=== PATIENT | male | born 1960 | race Caucasian/White ===

== ENCOUNTER 2021-07-14 17:57 | Emergency (ER) | payer OTHER, MEDICARE, SELFPAY ==
--- NOTE | ~2021-07-14 | US_ITS ---
EXAMINATION: US ABDOMEN COMPLETE CLINICAL INFORMATION: Elevated LFTs.. COMPARISON: None TECHNIQUE: Real-time imaging of the abdominal viscera. FINDINGS: PANCREAS: The pancreatic body is unremarkable. The pancreatic head and tail are obscured by gas. ABDOMINAL AORTA: The proximal, mid, and distal segments are normal in caliber. INFERIOR VENA CAVA: Visualized portions are normal. LIVER: The liver is normal in size. The liver contour is normal. There is diffuse increased liver parenchymal echogenicity, consistent with hepatic steatosis. No focal hepatic lesion. There is no intrahepatic biliary duct dilatation seen. GALLBLADDER: Normal. The gallbladder is physiologically distended without evidence of stones, sludge, polyps, wall thickening or pericholecystic fluid. COMMON BILE DUCT: Normal in caliber measuring 0.4 cm in diameter. RIGHT KIDNEY: Normal. No hydronephrosis. No renal calculi or focal parenchymal lesions. The kidney measures 8.4 cm in maximum dimension. LEFT KIDNEY: Normal. No hydronephrosis. No renal calculi or focal parenchymal lesions. The kidney measures 9.5 cm in maximum dimension. SPLEEN: Normal. The spleen measures 9.6 cm in maximum dimension. FREE FLUID: None. US/US abdomen complete IMPRESSION: Hepatic steatosis. Otherwise unremarkable abdominal ultrasound.
--- NOTE | ~2021-07-14 | CT_ITS ---
EXAMINATION: CT CERVICAL SPINE WITHOUT CONTRAST CLINICAL INFORMATION: Head trauma loss of consciousness COMPARISON: None TECHNIQUE: CT scan cervical spine without contrast department standard protocol. This CT examination was performed using dose optimization techniques as appropriate, variously including the following: *Automated exposure control *Adjustment of mA and/or kV according to patient size (this includes techniques or standardized protocols for targeted exams where dose is matched to indication/reason for exam; i.e. extremities or head) *Use of iterative reconstruction technique DLP: 329 mGy-cm FINDINGS: 7 cervical vertebrae identified maintaining proper height. There is mild grade 1 anterior spondylolisthesis of C4 on C5. There is loss of normal cervical lordosis probably spasm or positional. There is narrowing of disc spaces and developed small osteophyte from the edges of endplates at almost all level suggests underlying degenerative disc disease. Spinal levels: C2-C3: No fracture. No central or foraminal stenosis. C3-C4: No fracture. No central or foraminal stenosis. C4-C5: No fracture. There is facet joints arthropathy on the left. C5-C6: No fracture. No significant central or foraminal stenosis. C6-C7: No fracture. No significant central or foraminal stenosis. C7-T1: No fracture. No significant stenosis. CT/CT cervical spine wo con IMPRESSION: *No CT evidence of cervical fractures. *Degenerative disc disease and facet joints arthropathy at almost all levels. *Loss of normal cervical lordosis likely spasm or positional. *Mild grade 1 anterior spondylolisthesis of C4 on C5. Fleischner guidelines were followed.
--- NOTE | ~2021-07-14 | XR_ITS ---
EXAMINATION: XR CHEST CLINICAL INFORMATION: Fall. COMPARISON: None. TECHNIQUE: AP view of the chest was obtained. FINDINGS: Mildly prominent cardiomediastinal silhouette is likely related with supine technique. No focal airspace opacities, pleural effusions or pneumothorax. No acute osseous abnormalities. Moderate degenerative osteoarthritis in the shoulders. XR/XR chest 1V IMPRESSION: No acute cardiopulmonary findings. No acutely displaced rib fractures.
--- NOTE | ~2021-07-14 | XR_ITS ---
EXAMINATION: X-RAY LEFT FOREARM X-RAY LEFT WRIST CLINICAL INFORMATION: Fall, pain. COMPARISON: None. TECHNIQUE: 1 view of the left forearm. 3 views of the left wrist. FINDINGS: Left forearm: No acute fractures or malalignment. Although, evaluation is limited in the absence of additional views. Diffuse soft tissue swelling. Vascular calcifications. Left wrist: No acute fractures or malalignment. Carpal rows are maintained. Moderate degenerative osteoarthritis at the first CMC joint and triscaphe space. Soft tissue swelling. Vascular calcifications. XR/XR wrist LT 2V IMPRESSION: Left forearm: No acute fractures or malalignment. However, examination is somewhat limited in the absence of lateral views. Left wrist: No acute fractures or malalignment. Moderate degenerative osteoarthritic of the first CMC joint and triscaphe space.
--- NOTE | ~2021-07-14 | XR_ITS ---
EXAMINATION: XR ANKLE, LEFT CLINICAL INFORMATION: Fall, bruising, pain. COMPARISON: None. TECHNIQUE: AP, lateral, and mortise views of the left ankle. FINDINGS: Severe multifocal osteoarthritis with near ankylosis of multiple joints, subchondral cysts, bony productive changes and deformities. For instance, the talus seems to be medially subluxated with respect to the tibia. There is circumferential swelling around the ankle. There are extensive vascular calcifications and decreased bony mineralization. XR/XR ankle LT min 3V IMPRESSION: Background of significant osteoarthritis limiting evaluation of superimposed acute injuries. Correlation with an MR of the left ankle could be obtained if indicated.
--- NOTE | ~2021-07-14 | MR_ITS ---
EXAMINATION: MR BRAIN WITHOUT CONTRAST CLINICAL INFORMATION: Lacunar infarct. Recent fall. COMPARISON: Head CT from 07/14/2021. TECHNIQUE: Multiplanar, multisequence imaging of the brain was performed without contrast. Limited study with motion artifacts. FINDINGS: There is extensive encephalomalacia from a presumed chronic infarct in the right MCA vascular territory involving the dorsal right insular cortex and right parietal lobe with chronic gyral hemosiderin staining and regional volume loss resulting in mild ex vacuo dilatation of the posterior body of the right lateral ventricle. No diffusion abnormalities are identified to suggest an acute infarct. There is no hydrocephalus. Generalized parenchymal volume loss noted. No mass effect or midline shift is seen. Moderate chronic white matter microangiopathy evident. There is Wallerian degeneration visible in the posterior limb of the right internal capsule extending into the brainstem. Moderate small vessel ischemic changes also noted in the jennifer. No extra-axial fluid collections are seen. There are scattered small chronic lacunar infarcts in the cerebellum and in the dorsal right thalamus. The craniovertebral junction, marrow signal, and midline structures are normal. The major intracranial flow voids at the level of the [place] are preserved. The dural venous sinus flow voids are maintained. The mastoid air cells are well aerated. There is near complete mucosal opacification of the left ostiomeatal complex affecting the left frontal sinus cavity, left anterior ethmoid air cells, and left maxillary antrum with intermediate signal secretions on the T2-weighted acquisition. Secretions demonstrating restricted diffusion as well. The remaining paranasal sinuses are aerated. MR/MR head/brain wo con IMPRESSION: Limited study with motion artifacts. No acute intracranial process. Extensive encephalomalacia from a chronic infarct in the right MCA vascular territory with primarily affecting the right parietal lobe Wallerian degeneration. Moderate chronic white matter microangiopathy. Small chronic lacunar infarcts in the cerebellum and right thalamus. Severe left-sided ostiomeatal complex pattern of sinus disease with restricted diffusion. Imaging findings may be due to chronic inspissated proteinaceous secretions, however, the possibility of an acute sinusitis cannot be ruled out; clinically correlate. Please note that the dentition is not well assessed by MRI and an odontogenic etiology cannot be excluded.
--- NOTE | ~2021-07-14 | XR_ITS ---
EXAMINATION: XR BILATERAL HIPS WITH AP PELVIS CLINICAL INFORMATION: Bilateral hip pain. COMPARISON: None. TECHNIQUE: AP view of the pelvis and single views of each hip were obtained. FINDINGS: No acute fractures or malalignment. The femoral heads are well-seated in their respective acetabula. Mild to moderate degenerative osteoarthritis of both hips. Sacroiliac joints are symmetric. Extensive vascular calcifications with a few pelvic phleboliths. XR/XR hips MARIA ELENA min 3V IMPRESSION: No acute fractures or malalignment. Degenerative osteoarthritis as above.
--- NOTE | ~2021-07-14 | CT_ITS ---
CT head/brain wo con CLINICAL INFORMATION: Reason for Exam Fall, head trauma COMPARISON: No prior CT scan available for comparison. TECHNIQUE: Department standard protocol. This CT examination was performed using dose optimization techniques as appropriate, variously including the following: *Automated exposure control *Adjustment of mA and/or kV according to patient size (this includes techniques or standardized protocols for targeted exams where dose is matched to indication/reason for exam; i.e. extremities or head) *Use of iterative reconstruction technique DLP: 773 mGy-cm FINDINGS: CEREBRAL HEMISPHERES: There is large area of hypoattenuation involving the right parietal lobe distribution of the right MCA likely sequela of an infarct indeterminant age. No significant mass effect however. No associated bleed. SUBDURAL SPACE: No bleed. BASAL GANGLIA AND PINEAL GLAND: There is lacunar infarct in the right thalamus. VENTRICLES: Symmetric and normal in size. CEREBELLUM AND BRAINSTEM: No space-occupying mass, hemorrhage or acute infarct. CEREBELLOPONTINE ANGLES: No lesion found. ORBITS: No intraorbital mass. VESSELS: Unremarkable SKULL BASE: Unremarkable INCLUDED SINUSES AT SKULL BASE: Clear SKULL AND SKIN: No fracture or bone lesion found. CT/CT head/brain wo con IMPRESSION: *Large area of the hypoattenuation with encephalomalacia involving the right parietal lobe distribution of right MCA suggesting an infarct, this is of indeterminant age. There is however No associated mass effect or bleed. *Lacunar infarct right thalamus. Please correlate with patient's clinical presentation and history, MRI could be utilized to assess the age of the infarct if indicated. (Referring physician staff is being called, to be alerted of the above findings and recommendations.) EM
--- NOTE | ~2021-07-14 | CT_ITS ---
EXAMINATION: CTA OF THE HEAD/NECK CLINICAL INFORMATION: Lacunar infarct. COMPARISON: CT and MRI from earlier in the day. TECHNIQUE: A routine non contrast head CT was performed earlier in the day. This is followed by a saline mL bolus of Omnipaque 350. Subsequent multidetector helical imaging was performed of the head and neck. Delayed post contrast imaging was also performed through the head. Multiplanar reformats and MIP were also obtained. Internal carotid artery stenoses are assessed in accordance with NASCET criteria unless otherwise indicated. This CT examination was performed using dose optimization techniques as appropriate, variously including the following: *Automated exposure control *Adjustment of mA and/or kV according to patient size (this includes techniques or standardized protocols for targeted exams where dose is matched to indication/reason for exam; i.e. extremities or head) *Use of iterative reconstruction technique DLP: 1670 mGy-cm. FINDINGS: CT HEAD: There is no evidence of acute intracranial hemorrhage or territorial infarction. No abnormal mass effect or midline shift is seen. Chronic right MCA territory infarct centered in the right parietal lobe again noted. Chronic right occipital lobe infarct. Chronic lacunar infarct in the right thalamus. Fishman to white matter differentiation is otherwise well preserved. No extra-axial fluid collections are identified. No suspicious leptomeningeal or parenchymal enhancement on the post-contrast images. No hydrocephalus. Proportional prominence of the ventricles and sulcal spaces is consistent with mild volume loss. Patchy periventricular and deep white matter hypoattenuation is consistent with mild small vessel ischemic changes. The osseous structures and soft tissues are normal. There is significant opacification of the left maxillary sinus, left frontal sinus, and anterior left ethmoid air cells. The remaining paranasal sinuses are well aerated. The mastoid air cells are well aerated. CTA NECK: The aortic arch is of normal caliber and the origins of the great vessels are patent without evidence of significant stenosis. Mild stenosis at the origin of the right humeral artery. The left vertebral artery origin is patent. The cervical portion of the vertebral arteries are patent bilaterally. No luminal irregularities in the common carotid arteries and the carotid bifurcations are patent bilaterally. Calcified and noncalcified plaque at the origin of the left internal carotid artery noted. No significant stenosis. Right internal carotid origin widely patent. The cervical portion of the internal carotid arteries are of normal caliber. The laryngeal structures and pharyngeal mucosal spaces are unremarkable. The oral cavity appears normal. The parotid and submandibular glands are normal. No pathologically enlarged lymph nodes. The thyroid gland is unremarkable. The lung apices are clear without evidence of pneumothorax. Spinal alignment is maintained. Mild cervical spondylosis is noted. CTA HEAD: The intradural portion of the vertebral arteries are of normal caliber. The basilar, superior cerebellar, and posterior communicating arteries are patent. The posterior, middle, and anterior cerebral arteries are of normal caliber without evidence of significant luminal irregularity. No definite intracranial aneurysms. CT/CT angio head neck IMPRESSION: 1. No acute intracranial finding. Chronic right MCA territory and right occipital lobe infarcts. Chronic lacunar infarct of the right thalamus. 2. Mild stenosis at the origin of the right vertebral artery. Otherwise no significant flow-limiting stenosis throughout the cervical vasculature or intracranial vasculature. 3. Left ostiomeatal complex opacification.
--- NOTE | ~2021-07-14 | XR_ITS ---
EXAMINATION: X-RAY LEFT FOREARM X-RAY LEFT WRIST CLINICAL INFORMATION: Fall, pain. COMPARISON: None. TECHNIQUE: 1 view of the left forearm. 3 views of the left wrist. FINDINGS: Left forearm: No acute fractures or malalignment. Although, evaluation is limited in the absence of additional views. Diffuse soft tissue swelling. Vascular calcifications. Left wrist: No acute fractures or malalignment. Carpal rows are maintained. Moderate degenerative osteoarthritis at the first CMC joint and triscaphe space. Soft tissue swelling. Vascular calcifications. XR/XR forearm LT 2V IMPRESSION: Left forearm: No acute fractures or malalignment. However, examination is somewhat limited in the absence of lateral views. Left wrist: No acute fractures or malalignment. Moderate degenerative osteoarthritic of the first CMC joint and triscaphe space.
[2021-07-14 18:20] VITALS: BP 171/84; BP 176/90; PULSE 60; PULSE 62; RESP 16; TEMP 36.9; O2SAT 94; O2SAT 97; BMI 23.7
--- NOTE | 2021-07-14 18:27 | ED.FALL ---
HPI - Fall General Chief Complaint: Fall Stated Complaint: slip and fall Time Seen by Provider: 07/14/21 19:48 Source: patient and EMS Mode of arrival: EMS Limitations: no limitations History of Present Illness HPI Narrative: 60-year-old male presents from senior living facility via EMS for fall, reportedly to be a seizure however was unwitnessed. Patient fell at 11:00, does not recall losing consciousness but is not able recall all of the events. Has reported multiple falls over the past few months suspected to be because of medication changes. MD complaint: fall Onset (ago): hour(s) (11:00) Fall from: standing Fall witnessed: yes, by family Place fall occurred: home Loss of consciousness: unsure Length of LOC: second(s) Prolonged down time: no Symptoms prior to fall: none Context: tripped/slipped Location of injury: head and pelvis Location of injury - extremities: left: forearm, hand, knee and ankle Severity: moderate Severity scale (1-10): 6 Quality: aching Related Data Home Medications Medication Instructions Recorded Confirmed clopidogrel 75 mg tablet 1 tab PO DAILY 07/14/21 07/14/21 ferrous sulfate 325 mg (65 mg 325 mg PO MOWEFR@0900 07/14/21 07/14/21 iron) tablet (FeroSul) fluoxetine 20 mg capsule 2 cap PO DAILY 07/14/21 07/14/21 lacosamide 200 mg tablet (Vimpat) 1 tab PO BID 07/14/21 lisinopril 10 mg tablet 1 tab PO DAILY 07/14/21 07/14/21 lorazepam 1 mg tablet 1 mg PO Q4H PRN 07/14/21 07/14/21 melatonin 5 mg tablet 1 tab PO BEDTIME PRN 07/14/21 07/14/21 metoprolol succinate 25 mg 1 tab PO DAILY 07/14/21 07/14/21 tablet,extended release 24 hr oxycodone 5 mg tablet 1 tab PO BID 07/14/21 07/14/21 pantoprazole 40 mg tablet,delayed 1 tab PO DAILY 07/14/21 07/14/21 release prednisone 10 mg tablet 1 tab PO DAILY 07/14/21 07/14/21 Allergies Allergy/AdvReac Type Severity Reaction Status Date / Time docusate Allergy Unknown Unknown Verified 07/14/21 18:34 levofloxacin Allergy Unknown Unknown Verified 07/14/21 18:34 linezolid Allergy Unknown Unknown Verified 07/14/21 18:34 trazodone Allergy Unknown Unknown Verified 07/14/21 18:34 Review of Systems Review of Systems: Constitutional: No Fever, No Chills ENT/Mouth: No Ear Pain, No Hoarseness, No sore throat Eyes: No Eye Pain, No Swelling, No Redness, No Foreign Body Cardiovascular: No Chest Pain, No SOB Respiratory: No Cough, No Dyspnea Gastrointestinal: No Nausea, No Vomiting, No Diarrhea, No abdominal Pain Genitourinary: No Dysuria, No Hematuria Musculoskeletal: positive left wrist, ankle and bilateral hip pain, No Myalgias, No Joint Swelling Skin: No Skin lacerations, No rash Neuro: No Weakness, No Numbness, No Paresthesias, No Loss of Consciousness, No Dizziness, No Headache Psych: No Anxiety/Panic, No Depression Heme/Lymph: no easy bruising, no Lymphadenopathy Endocrine: No Polyuria, No Polydipsia Yes all other systems are reviewed and are negative [facility] Past Medical History Attestation statement: The following information was validated with the patient. Source: old records reviewed Social History Social History Alcohol intake: unknown Patient Tobacco Use Status: Tobacco use Unknown Use of substances other than those prescribed or required for medical reasons: No Advance Directives: Yes Advance Directives on File: Yes Advance Directives Date on File: 07/14/21 Physical Exam Vital Signs: Vital Signs: Last Vital Signs Temp 98.3 F 07/14/21 21:27 Pulse 65 07/14/21 22:19 Resp 16 07/14/21 22:19 BP 173/89 H 07/14/21 21:27 Pulse Ox 96 07/14/21 21:27 BMI result Body Mass Index 23.7 Appearance: Alert. Oriented to self and situation, dementia per baseline. No acute distress. Thin. Unkempt. Eyes: Pupils equal, round and reactive to light. Sclera nonicteric. ENT: Pharynx normal. Dry mucous membranes. Neck: Normal inspection. Neck supple. CVS: Normal heart rate and rhythm. Apical pulse equal pulses to extremities Respiratory: No respiratory distress. Breath sounds normal. Abdomen: Soft and nontender. Skin: Skin warm and dry. Normal skin color. Normal skin turgor. Extremities: No lower extremity edema. Moves all extremities against resistance. Left-sided hemiplegia for baseline. Neuro: No motor deficit. No sensory deficit. Cranial nerves 2-12 intact. NIH Stroke Scale Internal: Initial- Upon Arrival Level of Consciousness: Alert Level of Consciousness Questions: Answers both questions correctly Level of Consciousness Commands: Performs both tasks correctly Best Gaze: Normal Visual: No visual loss Facial Palsy: Normal Motor Arm (Right): No drift Motor Arm (Left): Some effort against gravity Motor Leg (Right): No drift Motor Leg (Left): Some effort against gravity Limb Ataxia: Absent Sensory: Mild to moderate sensory loss Best Language: No aphasia Dysarthia: Normal Extinction and Inattention: No abnormality Score: 5 Course Course Course Narrative: 60-year-old male with past medical history of dementia without behavioral disturbance, hypertension, VERÓNICA, anemia, Crohn's colitis, seizure disorder, CAD, history of CVA with residual left-sided weakness, left-sided Charcot foot, and hypercholesterolemia presents for injuries sustained from a fall. NIH stroke scale is 5, however patient does have left-sided hemiparesis secondary to prior CVA. High likelihood of CVA at this time. Will order CT of head, cervical spine. X-rays of extremities that have been affected. Labs and EKG. 19:50 discussion with Radiology, CT highly suggestive of possible new lacunar infarct to the right thalamus, has a large area of hypoattenuation with encephalomalacia involving the right parietal lobe. Patient does have a significant history of CVA with left-sided hemiparesis. Order for MRI and CTA of head and neck at this time. Discussion with patient and family, patient's states that he has had multiple falls starting in March. Has a significant seizure disorder and is having more seizures than normal lately. believes that last known well at approximately 24:00 hours ago as he was unable to move his left leg. He is able to move the left leg however unable to perform the [id number] secondary to his baseline left-sided hemiparesis. 20:47 patient is having a difficult time on the MRI table. Complaining of pain and anxiety. Order for 0.5 mg of Ativan and 2 mg of morphine IV push. 22:08 discussion with hospitalist, plan of care is to admit for lacunar infarct the thalamus. LFTs are elevated, will order abdominal ultrasound and repeat troponin at 2200 p.m.. Consultations Consultation #1: Gustavo Time: 22:00 MDM - Fall MDM Narrative Medical decision making narrative: CVA Differential Diagnosis Differential diagnosis: Likely syncope, dislocation, fracture and concussion with loss of consciousness Medical Records Attestation: I reviewed the patient's medical records. Lab Data Attestation: I reviewed the patient's lab results. Result diagrams: 07/14/21 19:19 07/14/21 19:19 Labs: Lab Results 07/14/21 07/14/21 07/14/21 Range/Units 19:19 19:19 19:19 WBC 9.3 (4.8-10.8) X10*3/uL RBC 3.81 L (4.60-5.80) X10*6/uL Hgb 10.3 L (14.0-18.0) g/dl Hct 33.8 L (42.0-52.0) % MCV 88.7 (80.0-98.0) fL MCH 27.0 (27.0-33.0) pg MCHC 30.5 L (31.0-36.0) g/dl RDW 16.7 H (11.0-16.0) % Plt Count 323 (160-400) X10*3/uL MPV 9.2 L (9.4-12.4) fL Immature Gran % (Auto) 0.6 H (0.0-0.4) % Neut % (Auto) 68.2 (45-73) % Lymph % (Auto) 20.7 (20-40) % Emmons % (Auto) 8.9 (2-11) % Eos % (Auto) 1.3 (0-4) % Baso % (Auto) 0.3 (0-2) % Lymph # (Auto) 1.9 (1.2-4.9) X10*3/uL Emmons # (Auto) 0.8 (0.1-1.2) X10*3/uL Eos # (Auto) 0.1 (0.0-0.4) X10*3/uL Baso # (Auto) 0.0 (0.0-0.2) X10*3/uL Abs Immat Gran (auto) 0.06 H (0.00-0.03) X10*3/uL Absolute Neuts (auto) 6.4 (2.0-8.3) x10*3/uL Absolute Nucleated RBC 0.000 (0.0-0.012) X10*3/uL Nucleated RBC % (auto) 0.0 (0.0-0.2) /100WBC PT 12.0 (9.9-13.0) SEC INR 1.1 (0.9-1.1) APTT 31.5 (24.1-38.0) SEC Sodium 138 (135-145) mmol/L Potassium 4.1 (3.3-5.1) mmol/L Chloride 104 (96-108) mmol/L Carbon Dioxide 26 (22-29) mmol/L Anion Gap 12 (12-20) BUN 13 (9-16) mg/dL Creatinine 0.69 (0.5-1.4) mg/dL Estim Creat Clear Calc 107.3 Estimated GFR > 60 Random Glucose 101 (60-115) mg/dL Calcium 9.2 (8.4-10.2) mg/dL Magnesium 2.0 (1.6-2.6) mg/dL Total Bilirubin 0.9 (0.0-1.0) mg/dL Direct Bilirubin 0.5 (0.0-0.5) mg/dL AST 118 H (5-37) U/L ALT 108 H (0-40) U/L Alkaline Phosphatase 276 H (39-117) U/L Troponin I High Sens (<3.5-35.0) ng/L Total Protein 7.0 (6.5-8.0) g/dL Albumin 3.8 (3.5-5.0) g/dL Lipase 8 (8-78) U/L COVID-19 ([place]) (Negative) COVID-19 Clin Com 07/14/21 07/14/21 07/14/21 Range/Units 19:19 19:21 22:28 WBC (4.8-10.8) X10*3/uL RBC (4.60-5.80) X10*6/uL Hgb (14.0-18.0) g/dl Hct (42.0-52.0) % MCV (80.0-98.0) fL MCH (27.0-33.0) pg MCHC (31.0-36.0) g/dl RDW (11.0-16.0) % Plt Count (160-400) X10*3/uL MPV (9.4-12.4) fL Immature Gran % (Auto) (0.0-0.4) % Neut % (Auto) (45-73) % Lymph % (Auto) (20-40) % Emmons % (Auto) (2-11) % Eos % (Auto) (0-4) % Baso % (Auto) (0-2) % Lymph # (Auto) (1.2-4.9) X10*3/uL Emmons # (Auto) (0.1-1.2) X10*3/uL Eos # (Auto) (0.0-0.4) X10*3/uL Baso # (Auto) (0.0-0.2) X10*3/uL Abs Immat Gran (auto) (0.00-0.03) X10*3/uL Absolute Neuts (auto) (2.0-8.3) x10*3/uL Absolute Nucleated RBC (0.0-0.012) X10*3/uL Nucleated RBC % (auto) (0.0-0.2) /100WBC PT (9.9-13.0) SEC INR (0.9-1.1) APTT (24.1-38.0) SEC Sodium (135-145) mmol/L Potassium (3.3-5.1) mmol/L Chloride (96-108) mmol/L Carbon Dioxide (22-29) mmol/L Anion Gap (12-20) BUN (9-16) mg/dL Creatinine (0.5-1.4) mg/dL Estim Creat Clear Calc Estimated GFR Random Glucose (60-115) mg/dL Calcium (8.4-10.2) mg/dL Magnesium (1.6-2.6) mg/dL Total Bilirubin (0.0-1.0) mg/dL Direct Bilirubin (0.0-0.5) mg/dL AST (5-37) U/L ALT (0-40) U/L Alkaline Phosphatase (39-117) U/L Troponin I High Sens 9.2 12.2 (<3.5-35.0) ng/L Total Protein (6.5-8.0) g/dL Albumin (3.5-5.0) g/dL Lipase (8-78) U/L COVID-19 ([place]) Negative (Negative) COVID-19 Clin Com See Note Imaging Data CT head neck: Attestation: I personally reviewed and interpreted this imaging study as follows: Radiologist's impression: FINDINGS: ? CEREBRAL HEMISPHERES: There is large area of hypoattenuation involving the right parietal lobe distribution of the right MCA likely sequela of an infarct indeterminant age. No significant mass effect however. No associated bleed. SUBDURAL SPACE: No bleed. BASAL GANGLIA AND PINEAL GLAND: There is lacunar infarct in the right thalamus. VENTRICLES: Symmetric and normal in size. CEREBELLUM AND BRAINSTEM: No space-occupying mass, hemorrhage or acute infarct. CEREBELLOPONTINE ANGLES: No lesion found. ORBITS: No intraorbital mass. VESSELS: Unremarkable SKULL BASE: Unremarkable INCLUDED SINUSES AT SKULL BASE: Clear SKULL AND SKIN: No fracture or bone lesion found. CT/CT head/brain wo con IMPRESSION: *Large area of the hypoattenuation with encephalomalacia involving the right parietal lobe distribution of right MCA suggesting an infarct, this is of indeterminant age. There is however No associated mass effect or bleed. ? *Lacunar infarct right thalamus. ? Please correlate with patient's clinical presentation and history, MRI could be utilized to assess the age of the infarct if indicated. ? (Referring physician staff is being called, to be alerted of the above findings and recommendations.) ? FINDINGS: 7 cervical vertebrae identified maintaining proper height. There is mild grade 1 anterior spondylolisthesis of C4 on C5. There is loss of normal cervical lordosis probably spasm or positional. There is narrowing of disc spaces and developed small osteophyte from the edges of endplates at almost all level suggests underlying degenerative disc disease.? Spinal levels: C2-C3: No fracture. No central or foraminal stenosis.? C3-C4: No fracture. No central or foraminal stenosis.? C4-C5: No fracture. There is facet joints arthropathy on the left.? C5-C6: No fracture. No significant central or foraminal stenosis.? C6-C7: No fracture. No significant central or foraminal stenosis.? C7-T1: No fracture. No significant stenosis.? CT/CT cervical spine wo con IMPRESSION: *No CT evidence of cervical fractures. ? *Degenerative disc disease and facet joints arthropathy at almost all levels. ? *Loss of normal cervical lordosis likely spasm or positional. ? *Mild grade 1 anterior spondylolisthesis of C4 on C5.? ? Fleischner guidelines were followed. Chest, ankle, hip, wrist x-rays: Attestation: I personally reviewed and interpreted this imaging study as follows: Radiologist's impression: EXAMINATION: XR CHEST CLINICAL INFORMATION: Fall. COMPARISON: None. TECHNIQUE: AP view of the chest was obtained. FINDINGS: Mildly prominent cardiomediastinal silhouette is likely related with supine technique. No focal airspace opacities, pleural effusions or pneumothorax. No acute osseous abnormalities. Moderate degenerative osteoarthritis in the shoulders. XR/XR chest 1V IMPRESSION: No acute cardiopulmonary findings. No acutely displaced rib fractures. EXAMINATION: XR ANKLE, LEFT CLINICAL INFORMATION: Fall, bruising, pain.? COMPARISON: None.? TECHNIQUE: AP, lateral, and mortise views of the left ankle. FINDINGS: Severe multifocal osteoarthritis with near ankylosis of multiple joints, subchondral cysts, bony productive changes and deformities. For instance, the talus seems to be medially subluxated with respect to the tibia. There is circumferential swelling around the ankle. There are extensive vascular calcifications and decreased bony mineralization.? XR/XR ankle LT min 3V IMPRESSION: Background of significant osteoarthritis limiting evaluation of superimposed acute injuries. Correlation with an MR of the left ankle could be obtained if indicated. EXAMINATION: XR BILATERAL HIPS WITH AP PELVIS CLINICAL INFORMATION: Bilateral hip pain. COMPARISON: None. TECHNIQUE: AP view of the pelvis and single views of each hip were obtained. FINDINGS: No acute fractures or malalignment. The femoral heads are well-seated in their respective acetabula. Mild to moderate degenerative osteoarthritis of both hips. Sacroiliac joints are symmetric. Extensive vascular calcifications with a few pelvic phleboliths. XR/XR hips MARIA ELENA min 3V IMPRESSION: No acute fractures or malalignment. Degenerative osteoarthritis as above. EXAMINATION: X-RAY LEFT FOREARM X-RAY LEFT WRIST CLINICAL INFORMATION: Fall, pain.? COMPARISON: None.? TECHNIQUE: 1 view of the left forearm. 3 views of the left wrist.? FINDINGS: Left forearm: No acute fractures or malalignment. Although, evaluation is limited in the absence of additional views. Diffuse soft tissue swelling. Vascular calcifications. Left wrist: No acute fractures or malalignment. Carpal rows are maintained. Moderate degenerative osteoarthritis at the first CMC joint and triscaphe space. Soft tissue swelling. Vascular calcifications.? XR/XR wrist LT 2V IMPRESSION: Left forearm: No acute fractures or malalignment. However, examination is somewhat limited in the absence of lateral views. ? Left wrist: No acute fractures or malalignment. Moderate degenerative osteoarthritic of the first CMC joint and triscaphe space.? ? MRI brain: Attestation: I personally reviewed and interpreted this imaging study as follows: Radiologist's impression: EXAMINATION: MR BRAIN WITHOUT CONTRAST CLINICAL INFORMATION: Lacunar infarct. Recent fall. COMPARISON: Head CT from 07/14/2021. TECHNIQUE: Multiplanar, multisequence imaging of the brain was performed without contrast. Limited study with motion artifacts. FINDINGS: There is extensive encephalomalacia from a presumed chronic infarct in the right MCA vascular territory involving the dorsal right insular cortex and right parietal lobe with chronic gyral hemosiderin staining and regional volume loss resulting in mild ex vacuo dilatation of the posterior body of the right lateral ventricle. No diffusion abnormalities are identified to suggest an acute infarct. There is no hydrocephalus. Generalized parenchymal volume loss noted. No mass effect or midline shift is seen. Moderate chronic white matter microangiopathy evident. There is Wallerian degeneration visible in the posterior limb of the right internal capsule extending into the brainstem. Moderate small vessel ischemic changes also noted in the jennifer. No extra-axial fluid collections are seen. There are scattered small chronic lacunar infarcts in the cerebellum and in the dorsal right thalamus. The craniovertebral junction, marrow signal, and midline structures are normal. The major intracranial flow voids at the level of the tazl[place] of Montes are preserved. The dural venous sinus flow voids are maintained. The mastoid air cells are well aerated. There is near complete mucosal opacification of the left ostiomeatal complex affecting the left frontal sinus cavity, left anterior ethmoid air cells, and left maxillary antrum with intermediate signal secretions on the T2-weighted acquisition. Secretions demonstrating restricted diffusion as well. The remaining paranasal sinuses are aerated. MR/MR head/brain wo con IMPRESSION: Limited study with motion artifacts. ? No acute intracranial process. Extensive encephalomalacia from a chronic infarct in the right MCA vascular territory with primarily affecting the right parietal lobe Wallerian degeneration. Moderate chronic white matter microangiopathy. Small chronic lacunar infarcts in the cerebellum and right thalamus. ? Severe left-sided ostiomeatal complex pattern of sinus disease with restricted diffusion. Imaging findings may be due to chronic inspissated proteinaceous secretions, however, the possibility of an acute sinusitis cannot be ruled out; clinically correlate. Please note that the dentition is not well assessed by MRI and an odontogenic etiology cannot be excluded. CTA head neck: Attestation: I personally reviewed and interpreted this imaging study as follows: Radiologist's impression: FINDINGS: CT HEAD: There is no evidence of acute intracranial hemorrhage or territorial infarction. No abnormal mass effect or midline shift is seen. Chronic right MCA territory infarct centered in the right parietal lobe again noted. Chronic right occipital lobe infarct. Chronic lacunar infarct in the right thalamus. Fishman to white matter differentiation is otherwise well preserved. No extra-axial fluid collections are identified. No suspicious leptomeningeal or parenchymal enhancement on the post-contrast images. No hydrocephalus. Proportional prominence of the ventricles and sulcal spaces is consistent with mild volume loss. Patchy periventricular and deep white matter hypoattenuation is consistent with mild small vessel ischemic changes. The osseous structures and soft tissues are normal. There is significant opacification of the left maxillary sinus, left frontal sinus, and anterior left ethmoid air cells. The remaining paranasal sinuses are well aerated. The mastoid air cells are well aerated. CTA NECK: The aortic arch is of normal caliber and the origins of the great vessels are patent without evidence of significant stenosis. Mild stenosis at the origin of the right humeral artery. The left vertebral artery origin is patent. The cervical portion of the vertebral arteries are patent bilaterally. No luminal irregularities in the common carotid arteries and the carotid bifurcations are patent bilaterally. Calcified and noncalcified plaque at the origin of the left internal carotid artery noted. No significant stenosis. Right internal carotid origin widely patent. The cervical portion of the internal carotid arteries are of normal caliber. The laryngeal structures and pharyngeal mucosal spaces are unremarkable. The oral cavity appears normal. The parotid and submandibular glands are normal. No pathologically enlarged lymph nodes. The thyroid gland is unremarkable. The lung apices are clear without evidence of pneumothorax. Spinal alignment is maintained. Mild cervical spondylosis is noted. CTA HEAD: The intradural portion of the vertebral arteries are of normal caliber. The basilar, superior cerebellar, and posterior communicating arteries are patent. The posterior, middle, and anterior cerebral arteries are of normal caliber without evidence of significant luminal irregularity. No definite intracranial aneurysms. CT/CT angio head neck IMPRESSION: ? 1. No acute intracranial finding. Chronic right MCA territory and right occipital lobe infarcts. Chronic lacunar infarct of the right thalamus. 2. Mild stenosis at the origin of the right vertebral artery. Otherwise no significant flow-limiting stenosis throughout the cervical vasculature or intracranial vasculature. 3. Left ostiomeatal complex opacification. ECG Data Attestation: I personally reviewed and interpreted this ECG as follows: ECG interpretation date: 07/14/21 ECG interpretation time: 19:50 Prior ECG tracings: not available for review Interpretation: Vent. Rate : 063 BPM ? ? Atrial Rate : 063 BPM ?? P-R Int : 170 ms? QRS Dur : 086 ms ? ? QT Int : 416 ms ? ? ? P-R-T Axes : 054 005 031 degrees ?? QTc Int : 425 ms ? Normal sinus rhythm Normal ECG No previous ECGs available ? Critical Care Time Critical Care Time Critical Care Time: Yes Total Critical Care Time: 65 Attestation: I have personally provided critical care time exclusive of time spent on separately billable procedures. Time includes review of laboratory data, radiology results, discussion with consultants, and monitoring for potential decompensation. Interventions were performed as documented. Discharge Plan Discharge Clinical Impression: Lacunar infarction, Elevated LFTs Patient Disposition: Admitted As Inpatient
--- NOTE | 2021-07-14 18:34 | ECG_ITS ---
Test Reason : FALL Blood Pressure : / mmHG Vent. Rate : 063 BPM Atrial Rate : 063 BPM P-R Int : 170 ms QRS Dur : 086 ms QT Int : 416 ms P-R-T Axes : 054 005 031 degrees QTc Int : 425 ms Artifact in tracing Normal sinus rhythm Normal ECG No previous ECGs available Referred By: Brenda Mckee Electronically Signed By:KELLEY BRAGA
[2021-07-14 19:07] VITALS: BP 178/89; PULSE 66; RESP 16; TEMP 36.9; O2SAT 96
[2021-07-14 19:26] LABS: MANUAL DIFF FLAG NO
[2021-07-14 19:30] LABS: Basophils Percent Auto 0.3 % (0-2); Eosinophils Absolute Auto 0.1 X10*3/uL (0.0-0.4); Eosinophils Percent Auto 1.3 % (0-4); Hematocrit 33.8 % (42.0-52.0); Hemoglobin 10.3 g/dl (14.0-18.0); Imm Gran Abs Auto 0.06 X10*3/uL (0.00-0.03); Imm Gran Pct Auto 0.6 % (0.0-0.4); Lymphocytes Absolute Auto 1.9 X10*3/uL (1.2-4.9); Lymphocytes Percent Auto 20.7 % (20-40); Mean Corpuscular HGB Conc 30.5 g/dl (31.0-36.0); Mean Corpuscular Volume 88.7 fL (80.0-98.0); Mean Platelet Volume 9.2 fL (9.4-12.4); Monocytes Absolute Auto 0.8 X10*3/uL (0.1-1.2); Monocytes Percent Auto 8.9 % (2-11); Neutrophils Absolute Auto 6.4 x10*3/uL (2.0-8.3); Neutrophils Percent Auto 68.2 % (45-73); Platelet Count 323 X10*3/uL (160-400); Red Blood Count 3.81 X10*6/uL (4.60-5.80); Red Cell Distribution Width 16.7 % (11.0-16.0); White Blood Count 9.3 X10*3/uL (4.8-10.8)
[2021-07-14 19:36] LABS: INTERNATIONAL NORM RATIO 1.1 (0.9-1.1)
[2021-07-14 19:38] LABS: Partial Thromboplastin Time 31.5 SEC (24.1-38.0)
[2021-07-14 19:47] LABS: Alanine Aminotransferase 108 U/L (0-40); Albumin Level 3.8 g/dL (3.5-5.0); Alkaline Phosphatase 276 U/L (39-117); Anion Gap 12 (12-20); Aspartate Amino Transferase 118 U/L (5-37); Bilirubin Direct 0.5 mg/dL (0.0-0.5); Bilirubin Total 0.9 mg/dL (0.0-1.0); Blood Urea Nitrogen 13 mg/dL (9-16); Calcium 9.2 mg/dL (8.4-10.2); Carbon Dioxide 26 mmol/L (22-29); Chloride 104 mmol/L (96-108); Creatinine Clr Calc Pharmacy 107.3; Estimated Glomerular Filt Rate > 60; Glucose Random 101 mg/dL (60-115); Lipase 8 U/L (8-78); Potassium 4.1 mmol/L (3.3-5.1); Sodium 138 mmol/L (135-145); Troponin-I High Sensitivity 9.2 ng/L (<3.5-35.0)
[2021-07-14 19:51] LABS: COVID-19 Test Negative (Negative); IDNOW Serial# 55D5AD1C
[2021-07-14] MEDS: Morphine Sulfate 2 MG/ML CARTRIDGE IVPUSH (20:55)
[2021-07-14] MEDS: LORazepam 2 MG/ML VIAL 0.5 MG IVPUSH (20:55)
--- NOTE | 2021-07-14 21:00 | PC.NURSE ---
MRI called provider (Brenda Moreno [employer]) to inform her that pt was agitated and c/o pain and unable to sit still for MRI Provider placed orders for Ativan and Morphine. This RN to MRI to administer medications (20:55) and remain with pt during MRI. Pt back to room, vitals updated by preventative maintenance technician Sachin. PT now off to CT
[2021-07-14 21:27] VITALS: BP 173/89; PULSE 59; RESP 12; TEMP 36.8; O2SAT 96
[2021-07-14] MEDS: iohexoL 350 MG/ML 100 ML INFUS..BTL IV (21:59)
[2021-07-14 22:19] VITALS: PULSE 65; RESP 16
[2021-07-14] MEDS: oxyCODONE HCl Immed Release 5 MG TABLET 10 MG PO (22:20)
[2021-07-14] MEDS: Diphth,Pertus(ACell),Tet Adult 0.5 ML SYRINGE IM (22:22)
--- NOTE | 2021-07-14 22:23 | PHA.MEDREC ---
Addendum entered by Bobbi Fleming, [facility] 07/15/21 10:51: Contacted [facility] and spoke with Bree. Med list on Physician Clearance form is correct ( not medication orders). Pt is in between transferring pharmacies. pt is taking Vimpat and also added Aspirin, ascorbic acid, clobetasol. med list updated. Original Note: Pharmacy Consult ? Medication Reconciliation Pharmacy has completed the medication reconciliation. Unclear if pt should be taking Vimpat, called housing and they didnt have a nurse on staff and couldnt find it in his med box. He had two med lists, one had vimpat (older one) newer one didnt. I let MD know that we are unsure and will have morning pharmacist verify. Tiffany BrunoD
[2021-07-14 22:54] LABS: Troponin-I High Sensitivity 12.2 ng/L (<3.5-35.0)
[2021-07-14 23:40] VITALS: BP 178/94; PULSE 60; RESP 18; TEMP 36.7; O2SAT 97
--- NOTE | 2021-07-14 23:49 | PM.EVENT ---
Event Note Date of Service: 07/14/21 Event Note: I was asked to admit this pt for possible stroke seen on CT of the head. Pt with hx of CVA and recent multiple prolonged admissions to multiple hospitals ( [facility] for covid pna 15 days, [facility] 3 wks for VERÓNICA), and now at assisted living because pt deconditioned and has chronic balance issues, presented to the hospital with falling. pt has hx of stroke with left sided hemiparesis. Pt reports that he has balance issues for a long time and tippy toe chronically but has been falling more than usual. he also reports that he has had medication mix up since being at [facility]. MRI of the brain was obntained prior to admission showed no acute intracranial process, chronic infarct in R MCA, and shrnoic small lacunar infarct in the cerebellum and right thalamus. His falls are likely 2/2 a combinations of things, including deconditioning in the setting of recent multiple prolonged hospitalization complicated by hx of stroke and chronic left hemiparesis I do not perceive an indication for admission as pt's strokes are chronic ( known hx of CVA) and do not warrant admission for acute work up. I recommend case management consultation for rehab/PT/OT evaluation Case discussed with ED PA
[2021-07-15] VITALS (7 sets, daily range): BP systolic 187–215; BP diastolic 83–110; PULSE 60–74; RESP 15–20; TEMP 36.6–36.9; O2SAT 94–96
[2021-07-15] MEDS: oxyCODONE HCl Immed Release 5 MG TABLET PO ×6 (00:57→20:51)
[2021-07-15 04:15] LABS: Appearance Urine HAZY; Color Urine DK YELLOW; Glucose Urine UA NEG (NEG); Leukocyte Esterase Urine NEG (NEG); Nitrite Urine NEG (NEG); PH 6.5 (5.0-8.0); Urine Blood NEG (NEG); Urine Ketones NEG (NEG); Urine Protein NEG (NEG-TRACE)
[2021-07-15 04:31] LABS: Amphetamine Screen Urine Not Detected (Not Detect); Barbiturates, Urine Not Detected (Not Detect); Benzodiazepines Screen Urine Not Detected (Not Detect); Cannabinoid Screen Urine POSITIVE (Not Detect); Cocaine Screen Urine Not Detected (Not Detect); Fentanyl, urine Not Detected (Not Detect); Opiate Screen Urine POSITIVE (Not Detect); Phencyclidine Screen Urine Not Detected (Not Detect)
[2021-07-15] MEDS: LORazepam 1 MG TABLET PO ×2 (05:29→20:50)
--- NOTE | 2021-07-15 05:44 | PC.NURSE ---
BP 197/83 (Andreia) notified
[2021-07-15] MEDS: Clopidogrel Bisulfate 75 MG TABLET PO (08:05)
[2021-07-15] MEDS: FLUoxetine HCl 20 MG CAPSULE 40 MG PO (08:05)
[2021-07-15] MEDS: lisinopriL 10 MG TABLET PO (08:05)
[2021-07-15] MEDS: Omeprazole 20 MG CAPSULE.DR PO (08:05)
[2021-07-15] MEDS: predniSONE 10 MG TABLET PO (08:05)
[2021-07-15] MEDS: Metoprolol Succinate ER 25 MG TAB.ER.24H PO (08:05)
--- NOTE | 2021-07-15 08:14 | PC.NURSE ---
pt alert moving around everywhere in the stretcher, pt pulled out his iv, pt is covered all over the skin tears, rewrapped the right arm, pt is reporting pain mostly in his left hip but then states both of the hips are hurting. pt did state that he is in [place], knows the year, and day
--- NOTE | 2021-07-15 08:55 | PC.NURSE ---
physical therapy at bedside
--- NOTE | 2021-07-15 09:32 | MHC.CM.ED ---
Addendum entered by Darcy Irby 07/15/21 15:17: Pt is being [facility], [facility] and [facility]. Catrachot[facility] cannot give auth over a weekend per facilities: CM to f/u on Saturday, 07/17. PT eval uploaded: waiting for spouse, Inocencia to fax in the HCP to the ED CM number. Original Note: Pt presents to ED from [facility] in [place] where he has been since May. Pt has a long hx of CVA w/deficits, Crohns, anemia and has had numerous acute and STR stays in the past. Pt had a prolonged visit April - May at [facility] but could not be placed in STR d/t lack of beds and/or lack of payor authorization. Met with pt who had his spouse, Inocencia on speaker phone. Pt uses a walker, can complete most tasks independently but is very unsteady and prone to falls. [facility] has stated his physical needs/fall hx are not able to be managed at their level of care. [facility]. PCP is Dr. Combs from [facility] Pt has been fully vaxed/boostered and had COVID in April 2021. Pt has been to acute and STR in the past and is requesting to return. Pt's spouse tearful stating pt has been declining for years and no one will help us. We are paying privately for [facility] and I can't care for him at home - I work 40+ hours and I'm so overwhelmed. Will place broad payor based referrals: Inocencia will fax pt's HCP: pt requesting a MOLST completion. CM to follow
--- NOTE | 2021-07-15 09:57 | PC.NURSE ---
visiting nurse of [facility] called and would like an update if pt gets discharged or placed into a facility, number [phone]
[2021-07-15] MEDS: Lacosamide 100 MG TABLET 200 MG PO ×2 (11:05→20:50)
--- NOTE | 2021-07-15 11:09 | PC.NURSE ---
pt's states that the pt has hx of crohs and he does not need Colace, pt also refused the med
--- NOTE | 2021-07-15 14:00 | PC.NURSE ---
pt found sitting on the ground by his bed, pt reports he slipped of the bed, did not hit head, new skin tear to left forearm, stury strips applied to the arm
--- NOTE | 2021-07-15 17:58 | PC.NURSE ---
pt medicated for pain, 02/26, pt is currently laying in bed shaking the side rail and states he is having a seizure, but when this rn asked the pt to please stop shaking to take his medication pt let go of the side rail and stopped shaking for a second
[2021-07-15] MEDS: Melatonin 3 MG TABLET 6 MG PO (20:50)
--- NOTE | 2021-07-15 21:30 | PC.NURSE ---
pt medicated as per emar. sitter remains with pt at bedside. pt able to swallow meds with water w/o difficulty. pt denies any complaints and makes small talk with nurse. pt confused to place and time and requesting i wanna go home . will continue to monitor pt.
[2021-07-16 00:21] VITALS: BP 175/99; PULSE 79; RESP 16; O2SAT 99
--- NOTE | 2021-07-16 00:42 | PC.NURSE ---
pt moved to recliner chair for comfort. sitter remains with pt. Pt in nad and remains calm and cooperative. will continue to monitor pt.
[2021-07-16] MEDS: oxyCODONE HCl Immed Release 5 MG TABLET PO ×3 (01:17→09:50)
--- NOTE | 2021-07-16 04:30 | PC.NURSE ---
Addendum entered by Loyda Zepeda RN 07/16/21 06:38: Pt still c/o hip pain and pt continues to be agitated, prn Oxycodone 5 mg po , prn Lorazepam 1 mg po , tylenol 650 mg po and due prilosec po all given at 0636 and tolerated. Original Note: Pt came from ED to bed #7 , pt is alert and oriented to self , recognized he is in the hospital but doesn't know the name, pt is presenting with excrutiating pain on boo hips, with facial grimacing and hold his legs tight, noted with multiple bruising on UE and both hips, and some on his back, and legs, Skin tears noted on the right UE and left FA, left lower leg with dressing intact, tried to update MD for pain status as prn meds are not due yet, sitter at bed side, tolerating RA.
[2021-07-16 06:00] VITALS: BP 199/107; PULSE 76; RESP 16; TEMP 36.6; O2SAT 97
[2021-07-16] MEDS: Omeprazole 20 MG CAPSULE.DR PO (06:35)
[2021-07-16] MEDS: Acetaminophen 325 MG TABLET 650 MG PO (06:35)
[2021-07-16] MEDS: LORazepam 1 MG TABLET PO (06:35)
--- NOTE | 2021-07-16 09:47 | MHC.CM.ED ---
Spoke with Bree at [facility]: explained pt's need for increased PT: she is authoriziing increased PT services for pt through [facility] and will make the arrangements. They are willing to work with pt / family / skilled services to keep pt at facility. Discussed plan with pt and spouse Inocencia who are in agreement. Pt will return to [facility] at 11am today via pt's friend Ortiz who will transport. Scripts for prn pain & anxiety meds to accompany pt so [facility] may fill.
[2021-07-16] MEDS: predniSONE 10 MG TABLET PO (09:49)
[2021-07-16] MEDS: Clopidogrel Bisulfate 75 MG TABLET PO (09:49)
[2021-07-16] MEDS: FLUoxetine HCl 20 MG CAPSULE 40 MG PO (09:49)
[2021-07-16] MEDS: lisinopriL 10 MG TABLET PO (09:50)
[2021-07-16] MEDS: Lacosamide 100 MG TABLET 200 MG PO (09:50)
[2021-07-16] MEDS: Metoprolol Succinate ER 25 MG TAB.ER.24H PO (09:50)
[2021-07-16] MEDS: Docusate Sodium 100 MG CAPSULE PO (09:51)
[2021-07-16 10:02] VITALS: BP 183/89; PULSE 77; RESP 15; O2SAT 96
--- NOTE | 2021-07-16 11:39 | PC.NURSE ---
Pt Alert, oriented to person and place. Veryrestless, no complaints at this time. Sitter in place for fall prevention. Pt is pleasant and redirectable at this time. Plan for DC back to facility with more PT.
== END 2021-07-16 11:55 | disposition other institution (70) ==
PROVIDERS: Nurse Practitioner Family; Emergency Provider Internal Medicine
DX: I69.354 Hemiplegia and hemiparesis following cerebral infarction affecting left non-dominant side (principal); R53.1 Weakness; S09.90XA Unspecified injury of head, initial encounter; S10.91XA Abrasion of unspecified part of neck, initial encounter; R79.89 Other specified abnormal findings of blood chemistry; R56.9 Unspecified convulsions; M54.50 Low back pain, unspecified; M79.602 Pain in left arm; M79.601 Pain in right arm; M25.572 Pain in left ankle and joints of left foot; M25.551 Pain in right hip; M25.552 Pain in left hip; M54.2 Cervicalgia; M79.605 Pain in left leg; R10.9 Unspecified abdominal pain; M79.604 Pain in right leg; R29.705 NIHSS score 5; I25.10 Atherosclerotic heart disease of native coronary artery without angina pectoris; W01.0XXA Fall on same level from slipping, tripping and stumbling without subsequent striking against object, initial encounter; Y93.9 Activity, unspecified; Y92.9 Unspecified place or not applicable; Y99.9 Unspecified external cause status; Z20.822 Contact with and (suspected) exposure to COVID-19; Z79.899 Other long term (current) drug therapy
CPT/HCPCS: 36415; 70450; 70496; 70498; 70551; 71045; 72125; 73090; 73100; 73522; 73610; 76700; 80048; 80076; 80307; 81003; 83690; 83735; 84484; 85025; 85610; 85730; 87635; 90471; 90715; 93005; 96374; 96375; 97162; 99285; 99291; J2060; J2270; Q9967